=== PATIENT | female | born 1950 | race Caucasian/White ===

== ENCOUNTER 2019-11-03 10:42 | Day surgery (SDC) | payer MEDICARE, OTHER ==
[2019-11-03] MEDS ORDERED: PROPOFOL 10 MG/ML VIAL IV ONE (10:43)
[2019-11-03] MEDS ORDERED: ONDANSETRON HCL IV 4 MG/2 ML VIAL IVP ONE (10:43)
[2019-11-03] MEDS ORDERED: MIDAZOLAM HCL 2MG/2ML VIAL IV ONE (10:43)
[2019-11-03] MEDS ORDERED: KETOROLAC 30 MG/ML VIAL IVP ONE (10:43)
[2019-11-03] MEDS ORDERED: LIDOCAINE 2% MDV (20MG/ML) 20ML VIAL IV ONE (10:43)
[2019-11-03] MEDS ORDERED: DEXAMETHASONE 4 MG/ML 1ML VIAL IVP ONE (10:43)
[2019-11-03] MEDS ORDERED: FENTANYL PF 100MCG/2ML VIAL IV ONE (10:43)
[2019-11-03] MEDS ORDERED: ACETAMINOPHEN 1,000 MG/100 ML BTL IVPB ONE (11:00)
[2019-11-03] MEDS ORDERED: CEFAZOLIN 2 Gram 2 GM/50 ML BAG IVPB ONE (11:00)
[2019-11-03] MEDS ORDERED: RINGERS SOLUTION,LACTATED 1,000 ML IV ONE (12:00)
[2019-11-03] MEDS ORDERED: METHYLPREDNISOLONE 40MG/VIAL IU ONE (13:53)
[2019-11-03] MEDS ORDERED: MORPHINE SULFATE (PACU ONLY) 4 MG/ML VIAL IU ONE (13:53)
[2019-11-03] MEDS ORDERED: BUPIVACAINE 0.5% W/EPI MPF 30 ML VIAL IU ONE (13:53)
[2019-11-03] MEDS ORDERED: HYDROCODONE/APAP 7.5/325MG TABLET PO ONE (14:58)
--- NOTE | 2019-11-12 10:51 | Operative Note ---
DATE OF SURGERY: 11/03/2019 PREOPERATIVE DIAGNOSIS: Internal derangement of the right knee. POSTOPERATIVE DIAGNOSIS: Bucket-handle tear of the posterior horn of the lateral meniscus. OPERATION: Right knee arthroscopy with partial lateral meniscectomy. STAFF SURGEON: Gwyn Augustine MD ANESTHESIA: General. PREPARATION: Chloraprep. INDIVIDUAL CONSIDERATIONS: None. PROCEDURE: The patient was taken to the operating room and placed supine on the operating room table. The patient had a successful induction with general anesthetic. The right lower extremity was prepped and draped in the usual fashion. The patient had a superolateral inflow cannula placed. Skin was infiltrated with 0.5% Marcaine with epinephrine prior. A blood-tingued effusion was drained. The knee was inflated with normal saline. An inferomedial and an inferolateral portal were made in a similar fashion. The arthroscope was introduced through the inferolateral portal up into the pouch. The patellofemoral compartment was normal. There was floating debris in both gutters, which was irrigated out. 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 The tibial plateau and meniscus were normal. In the notch, cruciates were normal laterally. She had an obvious displacing bucket-handle tear of the posterior horn of the medial meniscus. Basically, this was removed with a basket forceps and a shaver to a stable rim. The lateral and anterior horns were intact. Articular cartilage was intact. The knee was then irrigated out with saline to remove loose floating debris. Portals were closed with rusty, and 20 mL of 0.5% Marcaine with epinephrine along with 4 mg of morphine and 40 mg of Depo-Medrol were injected into the knee. A sterile bulky compressive dressing was applied. The patient tolerated procedure well. Needle and sponge counts were correct. Estimated blood loss was minimal. She was taken back to recovery in good condition. There were no complications. BETTE
== END 2019-11-03 15:21 | disposition home or self-care (01) ==
LOC: SUR 10:42
PROVIDERS: ATTEND Orthopaedic Surgery
DX: S83.211A Bucket-handle tear of medial meniscus, current injury, right knee, initial encounter (principal)
CPT/HCPCS: 29881; 01400; J1885; J2405; J3010; J0690; J2270; J1030; J7120